=== PATIENT | female | born 1970 | race American Indian/Alaskan Native ===

== ENCOUNTER 2020-12-21 05:55 | Day surgery (SDC) | payer MEDICARE, OTHER ==
[2020-12-16 14:12] LABS: Hematocrit 45.6 % (30.3-42.9); Hemoglobin 15.3 gm/dl (10.1-14.3); Mean Corpuscular HGB Conc 34 % (30-34); Mean Corpuscular Volume 90 fl (79-97); Platelet Count 387 K/mm3 (140-440); Red Blood Count 5.08 M/mm3 (3.65-5.03); Red Cell Distribution Width 14.3 % (13.2-15.2)
--- NOTE | 2020-12-16 14:15 | Anesthesia Consultation ---
Anesthesia Consult and Med Hx Date of service: 12/21/20 - Airway Anesthetic Teeth Evaluation: Good (VENEERS) ROM Head & Neck: Adequate Mental/Hyoid Distance: Adequate Mallampati Class: Class II Intubation Access Assessment: Probably Good - Pre-Operative Health Status ASA Pre-Surgery Classification: ASA3 Proposed Anesthetic Plan: General - Pulmonary Hx Sleep Apnea: Yes (CPAP) - Cardiovascular System Hx Hypertension: Yes (CHF in 2004) Hx Heart Attack/AMI: Yes (2018 ??? 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 She states that she has not been around people and has groceries delivered to her home. +Cardiac clearance. Had ECHO/NST; see notes
[~2020-12-21 05:55] MED LIST: SILVER NITRATE APPLICATOR 1 EA TP ONE; SODIUM CHLORIDE 0.9% IRRIG SOLN 2000 ML IR ONE
[2020-12-21] MEDS ORDERED: LACTATED RINGERS 1,000 ML IV SCH (06:00)
[2020-12-21] MEDS: MIDAZOLAM 2 MG/2 ML INJ IV NR ×2 (07:08→07:22)
[2020-12-21] MEDS ORDERED: SILVER NITRATE APPLICATOR 1 EA TP ONE (07:11)
[2020-12-21] MEDS ORDERED: HYDROmorphone 1 MG/1 ML INJ ONE (07:16)
[2020-12-21] MEDS ORDERED: propofoL 200 MG/20 ML VIAL IV ONE ×2 (07:16→08:04)
[2020-12-21 07:17] LABS: Alanine Aminotransferase 11 units/L (7-56); Albumin 4.1 g/dL (3.9-5); BUN/Creatinine Ratio 13; Blood Urea Nitrogen 12 mg/dL (7-17); Calcium 9.4 mg/dL (8.4-10.2); Hemolysis Index 16
[2020-12-21] MEDS ORDERED: LIDOCAINE MPF (2%) 20 MG/1 ML VIAL 5 ML ONE (07:17)
--- NOTE | 2020-12-21 07:27 | Short Stay Summary ---
Short Stay Documentation Date of service: 12/21/20 Narrative H&P: Pt is a 50 year old female with a history of hypertension, obesity and cardiac issues who presents with post menopausal bleeding and endometrial hyperplasia. EMB was attempted in office but was unobtainable due to cervical stenosis. - History H&P: dictated Past Medical History: cancer, DVT, hypertension Past Surgical History: cholecystectomy Social history: - Allergies and Medications Current Medications: Allergies tape Adverse Reaction (Uncoded 12/21/20 06:54) pulls skin off paper tape is ok to use Home Medications Medication Instructions Recorded Confirmed Last Taken Type Gabapentin [Neurontin] 600 mg PO QID 12/13/20 12/13/20 12/20/20 19:00 History Oxycodone-Acetaminophen 10-325 10 mg [place] DAILY 12/13/20 12/13/20 12/20/20 19:00 History Plavix 75 mg PO DAILY 12/13/20 12/16/20 12/15/20 History Zolpidem 12.5 mg PO HS 12/13/20 12/13/20 12/20/20 19:00 History carvediloL [Coreg] 12.5 mg PO BID 12/13/20 12/13/20 12/20/20 19:00 History lisinopriL [Lisinopril] 10 mg PO BID 12/13/20 12/13/20 12/20/20 19:00 History traMADoL [Ultram 50 MG tab] 50 mg PO DAILY 12/13/20 12/13/20 12/20/20 19:00 History Active Medications Lactated Ringer's (Lactated Ringers) 1,000 mls @ 42 mls/hr IV DIRECT PK Cefazolin Sodium 3 gm/ Sodium (Chloride) 100 mls @ 100 mls/30 min IV PREOP NR; Protocol Stop: 12/21/20 23:00 Midazolam HCl (Midazolam 2 Mg/2 Ml Inj) 2 mg IV PREOP NR Stop: 12/21/20 23:59 - Physical exam General appearance: no acute distress HEENT: Atraumatic Lungs: Clear to auscultation, Normal air movement Breasts: deferred Heart: Regular rate, Normal S1, Normal S2 Gastrointestinal: normal, normoactive bowel sounds Female Genitourinary: deferred Rectal Exam: deferred Extremities: pulses intact - Brief post op/procedure progress note Date of procedure: 12/21/20 Pre-op diagnosis: Endometrial hyperplasia Post-op diagnosis: same Procedure: D&C with hysteroscopy Anesthesia: MAC Findings: Slightly thickened endometrium no obvious lesion Surgeon: NATALIYA QUARLES Estimated blood loss: 50-100ml Pathology: list (Endometrial curettings) Specimen disposition: to lab Condition: stable - Hospital course Hospital course: Unremarkable - Disposition Condition at discharge: Good Disposition: - TO HOME OR SELFCARE - Discharge Diagnoses (1) Hyperplasia of endometrium determined by biopsy Status: Acute Short Stay Discharge Plan Activity: advance as tolerated Weight Bearing Status: Weight Bear as Tolerated Diet: regular Follow up with: NATALIYA QUARLES MD [Staff Physician] - 14 Days Prescriptions: Ibuprofen [Motrin 800 MG tab] 800 mg PO Q8HR PRN #20 tablet PRN Reason: Pain, Mild (1-3)
[2020-12-21] MEDS ORDERED: MANNITOL/SORBITOL SOLUTION 3,000 ML IRRIG.SOLN IR ONE (08:26)
--- NOTE | 2020-12-21 08:27 | Anesthesia Day of Surgery ---
Anesthesia Day of Surgery - Day of Surgery Patient Examined: Yes Patient H&P Reviewed: Yes Patient is NPO: Yes
[2020-12-21] MEDS ORDERED: KETOROLAC 30 MG/1 ML INJ ONE (08:34)
[2020-12-21] MEDS ORDERED: ONDANSETRON 4 MG/2 ML INJ IV PRN (09:00)
[2020-12-21] MEDS ORDERED: HYDROcodone/ACETAMINOPHEN 5-325 MG TAB PO PRN (09:00)
[2020-12-21] MEDS ORDERED: fentaNYL 100 MCG/2 ML INJ IV PRN (09:00)
--- NOTE | 2020-12-21 09:13 | Operative Report ---
Operative Report Operative Report: Pre Op Diagnosis: Endometrial hyperplasia Post Op Diagnosis: Same Procedure: D&C with Hysteroscopy Surgeon: Clarisa Orozco MD EBL: 100 IVF: 1100 Urine output: 100 Specimen: Endometrial curettings Complications: Procedure: The patient returned to the OR with IV running and in place. She was given general anesthesia without difficulty. She was then placed in dorsolithotomy position and prepped and draped in normal sterile fashion. Her bladder was drained approximately 100 cc of clear yellow urine. Attention was then turned to the patient's vagina. A bivalve speculum placed in the vagina, the uterus was then identified and grasped with single-tooth tenaculum. It was then gently sounded to approximately 9 cm in length. It was then gently dilated up to approximately 21 mm. The hysteroscope was then introduced into the uterine cavity. It revealed mildly thickened shaggy endometrial tissue without obvious lesions. The scope was then removed, and the curettage was performed. This was done to there was a gritty texture noted in all 4 quadrants of the uterus. A second look was made using hysteroscope. There was excellent hemostasis. At this point all instruments the patient's vagina. She was then awakened and taken recovery in stable condition. The sponge and instrument coun ts were correct x2.
[2020-12-21 09:48] VITALS: BP 145/67
--- NOTE | 2020-12-21 10:13 | Post Anesthesia Evaluation ---
- Post Anesthesia Evaluation Patient Participated: Yes Airway Patent: Yes Stable Respiratory Function: Yes Nausea/Vomiting: No Temp > 96.8F: Yes Pain Manageable: Yes Adequeate Hydration: Yes Anesthesia Complications: No
== END 2020-12-21 10:25 | disposition home or self-care (01) ==
LOC: OR 05:55
PROVIDERS: ATTEND Obstetrics & Gynecology
DX: N85.00 Endometrial hyperplasia, unspecified (principal); N85.8 Other specified noninflammatory disorders of uterus; I11.0 Hypertensive heart disease with heart failure; I50.9 Heart failure, unspecified; G47.30 Sleep apnea, unspecified; K21.9 Gastro-esophageal reflux disease without esophagitis; E66.9 Obesity, unspecified; M19.90 Unspecified osteoarthritis, unspecified site; E11.9 Type 2 diabetes mellitus without complications; F32.9 Major depressive disorder, single episode, unspecified; Z98.890 Other specified postprocedural states; Z79.899 Other long term (current) drug therapy; Z88.8 Allergy status to other drugs, medicaments and biological substances; Z98.49 Cataract extraction status, unspecified eye; Z90.49 Acquired absence of other specified parts of digestive tract; Z85.3 Personal history of malignant neoplasm of breast; Z90.13 Acquired absence of bilateral breasts and nipples; Z98.51 Tubal ligation status; Z87.440 Personal history of urinary (tract) infections; Z68.43 Body mass index [BMI] 50.0-59.9, adult
CPT/HCPCS: 36415; 58558; 80053; 85027; 88305; J0690; J1170; J1885; J2250; J2405; J2704; J3010; J7120; A4217